=== PATIENT | female | born 1960 | race Caucasian/White ===

== ENCOUNTER 2022-01-05 17:59 | Emergency (ER) | payer MEDICAID, OTHER ==
[~2022-01-05] VITALS: Ht 167.6 cm; Wt 85.5 kg
[2022-01-05] MEDS ORDERED: IBUPROFEN 800 MG TABLET PO ONE (19:00)
[2022-01-05 20:10] VITALS: BP 131/78
== END 2022-01-05 20:13 | disposition home or self-care (01) ==
LOC: EMS 18:01
DX: R07.89 Other chest pain (principal); M54.89 Other dorsalgia; N81.4 Uterovaginal prolapse, unspecified
CPT/HCPCS: 71045; 72070; 99284

== ENCOUNTER 2022-02-01 20:01 | Emergency (ER) | payer MEDICAID ==
[~2022-02-01] VITALS: Ht 172.7 cm; Wt 100.0 kg
[2022-02-02] MEDS ORDERED: ACET-2080 PO (01:18)
[2022-02-02] MEDS ORDERED: BACL10TA PO (01:18)
[2022-02-02 01:26] VITALS: BP 137/60
== END 2022-02-02 01:28 | disposition home or self-care (01) ==
LOC: EMS 20:05
DX: R07.89 Other chest pain (principal)
CPT/HCPCS: 71250; 93005; 99284; Z7502

== ENCOUNTER 2022-02-28 13:13 | Emergency (ER) | payer MEDICAID, OTHER ==
[~2022-02-28] VITALS: Ht 167.6 cm; Wt 90.9 kg
[~2022-02-28 13:13] MED LIST: ACET-2080 PO; BACL10TA PO
[2022-02-28] MEDS ORDERED: ACETAMINOPHEN 500 MG TABLET PO ONE (16:15)
[2022-02-28 18:11] VITALS: BP 124/68
== END 2022-02-28 19:41 | disposition home or self-care (01) ==
LOC: EMS 13:13
DX: M25.561 Pain in right knee (principal); R51.9 Headache, unspecified; Z79.899 Other long term (current) drug therapy; W18.39XA Other fall on same level, initial encounter; Y93.89 Activity, other specified; Y92.89 Other specified places as the place of occurrence of the external cause; Y99.8 Other external cause status
CPT/HCPCS: 70450; 72125; 99284

== ENCOUNTER 2023-04-24 13:33 | Emergency (ER) | payer OTHER ==
[~2023-04-24] VITALS: Ht 167.6 cm; Wt 72.7 kg
[2023-04-24 13:35] VITALS: TEMP 98.3
[2023-04-24] MEDS ORDERED: KETOROLAC TROMETHAMINE 60 MG/2 ML VIAL IM ONE (14:30)
[2023-04-24] MEDS ORDERED: TRAM-559 PO (17:17)
[2023-04-24 17:25] VITALS: BP 138/71; PULSE 67; RESP 16
== END 2023-04-24 18:11 | disposition home or self-care (01) ==
LOC: EMS 13:33
DX: S80.01XA Contusion of right knee, initial encounter (principal); Z98.890 Other specified postprocedural states; W19.XXXA Unspecified fall, initial encounter; Y93.89 Activity, other specified; Y92.89 Other specified places as the place of occurrence of the external cause; Y99.8 Other external cause status
CPT/HCPCS: 99283; 73562; 96372; J1885

== ENCOUNTER 2023-04-27 18:17 | Emergency (ER) | payer OTHER ==
[~2023-04-27] VITALS: Ht 167.6 cm; Wt 90.0 kg
[~2023-04-27 18:17] MED LIST changes: +TRAM-559 PO
[2023-04-27] MEDS ORDERED: ACETAMINOPHEN 500 MG TABLET PO ONE (19:15)
[2023-04-27 19:30] LABS: COVID AG,FIA SOURCE NASOPHARYNGEAL
[2023-04-27 19:52] LABS: INFLUENZA TYPE A NEGATIVE FOR TYPE A (NEGATIVE); INFLUENZA TYPE B NEGATIVE FOR TYPE B (NEGATIVE)
[2023-04-27] MEDS ORDERED: IBUP-1492 PO (20:22)
[2023-04-27 20:50] VITALS: BP 123/66; PULSE 79; RESP 19; TEMP 99.1
== END 2023-04-27 20:53 | disposition home or self-care (01) ==
LOC: EMS 18:17
DX: U07.1 COVID-19 (principal); Z98.890 Other specified postprocedural states; Z20.822 Contact with and (suspected) exposure to COVID-19
CPT/HCPCS: 71045; 87804; 99284